=== PATIENT | male | born 2000 | race Two or more races ===

== ENCOUNTER 2025-03-05 06:16 | Emergency (ER) | payer MEDICAID, OTHER ==
[~2025-03-05] VITALS: Ht 182.9 cm; Wt 89.0 kg
[2025-03-05 07:28] VITALS: BP 147/89; PULSE 93; RESP 20; TEMP 97.6; O2SAT 97
[2025-03-05] MEDS: LIDOCAINE W/ EPINEPHRINE 1% 20ML VIAL ID ONE (07:46)
--- NOTE | 2025-03-05 08:01 | ED.PDOC ---
History of Present Illness HPI Comments 24-year-old male presents with a chief complaint of abscess to left hip x 1 week. Patient has a 5 x 5cm soft tissue swelling to his left hip. Patient reports that it is painful to touch. Patient states that he has been using heat compresses, but they have not been helping. Patient also reports taking Ibuprof en for the pain w/ improvement. Patient denies any fever at this time. Chief Complaint: Abscess Time Seen by MD: 07:24 Reviewed Notes: Nurses Notes, Medications, Allergies Allergies: Coded Allergies: NO KNOWN ALLERGIES (Unverified , 03/05/25) Home Meds Active Scripts Doxycycline Hyclate (DOXYCYCLINE HYCLATE) 100 Mg Tab, 1 TAB PO BID for 7 Days, #14 TAB 0 Refills Prov:NIKC HORVATH FRANK 03/05/25 Information Source: Patient Mode of Arrival: Ambulatory Severity: Moderate Timing: Days Duration: Since onset Prehospital treatment: None Past Medical History PAST MEDICAL HISTORY: Denies Surgical History: Denies all surgeries Family History Family History: Reviewed,noncontributory to illness Social History Smoker: Non-Smoker Alcohol: Denies ETOH Use Drugs: Denies Drug Use Lives In: Home Constitutional: denies: chills, diaphoresis, fatigue, fever, malaise, sweats, weakness, others EENTM: denies: blurred vision, double vision, ear bleeding, ear discharge, ear drainage, ear pain, ear ringing, eye pain, eye redness, hearing loss, mouth pain, mouth swelling, nasal discharge, nose bleeding, nose congestion, nose pain, photophobia, tearing, throat pain, throat swelling, voice changes, others Respiratory: denies: cough, hemoptysis, orthopnea, SOB at rest, shortness of breath, SOB with excertion, stridor, wheezing, others Cardiovascular: denies: chest pain, dizzy spells, diaphoresis, Dyspnea on exertion, edema, irregular heart beat, left arm pain, lightheadedness, palpitations, PND, syncope, others Gastrointestinal: denies: abdomen distended, abdominal pain, blood streaked bowels, constipated, diarrhea, dysphagia, difficulty swallowing, hematemesis, melena, nausea, poor appetite, poor fluid intake, rectal bleeding, rectal pain, vomiting, others Genitourinary: denies: burning, dysuria, flank pain, frequency, hematuria, incontinence, penile discharge, penile sore, pain, testicle pain, testicle swelling, urgency, others Neurological: denies: dizziness, fainting, headache, left sided numbness, left sided weakness, numbness, paresthesia, pre-existing deficit, right sided numbness, right sided weakness, seizure, speech problems, tingling, tremors, weakness, others Musculoskeletal: denies: back pain, gout, joint pain, joint swelling, muscle pain, muscle stiffness, neck pain, others Integumetry: reports: lumps; denies: bruises, change in color, change in hair/nails, dryness, laceration, lesions, rash, wounds, others Allergic/Immunocompromised: denies: Difficulty Healing, Frequent Infections, Hives, Itching, others Hematologic/Lymphatic: denies: anemia, blood clots, easy bleeding, easy bruising, swollen glands, others Endocrine: denies: excessive hunger, excessive sweating, excessive thirst, excessive urination, flushing, intolerance to cold, intolerance to heat, unexplained weight gain, unexplained weight loss, others Psychiatric: denies: anxiety, bipolar disorder, depression, hopeless, panic disorder, schizophrenia, sleepless, suicidal, others All Other Systems: Reviewed and Negative Physical Exam General Appearance: No Apparent Distress, Normal, Other (5 X 5 CM SOFT TISSUE SWELLING TO THE LEFT HIP, ERYTHEMATOUS, FLUCTUANT TO PALPATION, MILD TTP) HEENT: Normal ENT Inspection, Pharynx Normal, TMs Normal Neck: Full Range of Motion, Non-Tender, Normal, Normal Inspection Respiratory: Chest Non-Tender, Lungs Clear, No Accessory Muscle Use, No Respiratory Distress, Normal Breath Sounds Cardiovascular: No Edema, No JVD, No Murmur, No Gallop, Regular Rate/Rhythm Breast Exam: Deferred Gastrointestinal: No Organomegaly, Non Tender, No Pulsatile Mass, Normal Bowel Sounds, Soft Genitalia: Deferred Pelvic: Deferred Rectal: Deferred Extremities: No calf tenderness, Normal capillary refill, Normal inspection, Normal range of motion, Non-tender, No pedal edema Musculoskeletal : Apperance: Normal Neurologic: Alert, hedge trimmer II-XII nml as Tested, No Motor Deficits, Normal Affect, Normal Mood, No Sensory Deficits Cerebellar Function: Normal Reflexes: Normal Skin: Dry, Normal Color, Warm Lymphatic: No Adenopathy Was a procedure done? Was a procedure done?: Yes Sedation Sedation?: No Incision and Drainage Incision and Drainage: Abscess Location LEFT HIP Anesthetic: Lidocaine with Epi Preparation: Betadine, Saline Incision and Wound: Pus, Seroma, Irrigated, Packed Informed consent obtained: Yes Risks/benefits/alt described: Yes Differential Dx Considerations may include: abscess, cyst, cellulitis X-Ray, Labs, Meds, VS Vital Signs Date Time Temp Pulse Resp B/P (MAP) Pulse Ox O2 Delivery O2 Flow Rate FiO2 03/05/25 07:28 97.6 93 20 147/89 (108) 97 97.6 03/05/25 07:28 93 20 97 Room Air 03/05/25 06:26 97.6 93 20 147/89 (108) 97 97.6 Current Medications Medications (Trade) Dose Ordered Sig/Willow Route Start Time Stop Time Status Last Admin Lidocaine/ Epinephrine 5 ml ONCE ONCE ID 03/05/25 07:45 03/05/25 07:46 DC 03/05/25 07:46 X-Ray, Labs, Meds, VS Comment 24-year-old male presents with a chief complaint of abscess to left hip x 1 week. PATIENT ARRIVES ALERT AND ORIENTED, ABC'S INTACT, AFEBRILE, VITAL SIGNS STABLE, SATURATING WELL IN ROOM AIR This patient presents with signs and symptoms consistent with a cutaneous abscess. The abscess is localized without any evidence of deep soft tissue infection based on physical examination. The patient required incision and drainage. Verbal informed consent was obtained from the patient. I discussed the indications, benefits, alternatives and complications to performing an incision and drainage. The patient understands the risks include, but are not limited to scarring, underlying structure injury, bleeding, nerve injury, new infection, and resultant disability. The skin overlying the abscess was prepared with Betadine and alcohol. The skin surrounding the abscess was locally anesthetized using 1% Lidocaine with EPI An incision using a number 11 blade scalpel was made overlying the abscess. The incision was 1 cm long. Loculations were bluntly dissected using a hemostat. Careful exploration of the abscess cavity demonstrated no foreign body. The abscess cavity was packed with sterile packing. The wound was then dressed with sterile gauze. The wound was hemostatic at the conclusion of the procedure. The patient did not appear to suffer any complications as a result of the procedure. The patient was given DOXYCYCLINE 100 mg BID x 10 days and will f/u with PMD 3-5 days or return to the ER sooner if it worsens. The patient was counseled in regard to the diagnosis and management of the condition and verbalized understanding of this. The patient understands to return to the ER or seek imm ediate medical attention if the symptoms worsen. ADDITIONAL MDM REVIEW OF EXTERNAL, NON-ED RECORDS: EXTERNAL RECORDS REVIEWED. DISCUSSION WITH INDEPENDENT HISTORIAN (EMS, FAMILY) HISTORY OBTAINED FROM THE PATIENT/PARENTS (IF APPLICABLE) AT BEDSIDE CHRONIC CONDITIONS AFFECTING CARE: NONE SOCIAL DETERMINANTS OF HEALTH AFFECTING CARE: NONE CONSIDERATION OF ADMISSION (OBSERVATION OR ADMISSION): I CONSIDERED ESCALATION OF CARE TO ADMISSION FOR THIS PATIENT, HOWEVER GIVEN THE REASSURING WORKUP, THE PATIENT IS SAFE FOR OUTPATIENT MANAGEMENT. Time of 1ST Reevaluation: 07:24 Reevaluation 1ST: Unchanged Time of 2ND Reevaluation: 08:30 Reevaluation 2ND: Improved Patient Education/Counseling: Diagnosis, Treatment, Prognosis Family Education/Counseling: No Family Present SEPSIS Sepsis Screen Date sepsis recognized/suspect: Mar 05, 2025 Time Sepsis recognized/suspect: 625 Recent Procedure: No On Antibiotic Therapy: No Respiratory Rate >20: No Heart Rate >90: Yes Temp<36 C (96.8 F) or >38.3 C: No SBP <90 or MAP <65 mmHG: No New Acute Mental Status Change: No Is the patient on CPAP, BIPAP,: No Orders/Vitals/Labs Physician Orders 4X4 (03/05/25 07:36) Packing (03/05/25 07:36) Sterile Gloves (03/05/25 07:36) Sterile Dressing (03/05/25 07:36) I&D Tray (03/05/25 07:36) Vital Signs Date Time Temp Pulse Resp B/P (MAP) Pulse Ox O2 Delivery O2 Flow Rate FiO2 03/05/25 07:28 97.6 93 20 147/89 (108) 97 97.6 03/05/25 07:28 93 20 97 Room Air 03/05/25 06:26 97.6 93 20 147/89 (108) 97 97.6 Departure 1 Departure Time of Disposition: 08:31 Impression: Primary Impression: Abscess Disposition: 01 HOME / SELF CARE / HOMELESS Condition: Stable e-Prescriptions Doxycycline Hyclate (DOXYCYCLINE HYCLATE) 100 Mg Tab 1 TAB PO BID for 7 Days, #14 TAB 0 Refills Prov: NICK HORVATH NP 03/05/25 Critical Care Note Critical Care Time?: No Stability Stability form required: No Heart Score Heart Score: Heart Score Response (Comments) Value History N/A 0 EKG N/A 0 Age N/A 0 Risk Factors N/A 0 Troponin N/A 0 Total 0 I personally scribed for NICK HORVATH NP ([email or web address]) on 03/05/25 at 08:01. Electronically submitted by Truman Epps ([email or web address]). I personally scribed for NICK HORVATH NP ([email or web address]) on 03/05/25 at 08:28. Electronically submitted by Truman Epps ([email or web address]). NICK HORVATH NP Mar 05, 2025 08:01
[2025-03-05] MEDS ORDERED: DOXY-286 PO (08:31)
== END 2025-03-05 08:31 | disposition home or self-care (01) ==
LOC: ER 06:16
DX: L02.416 Cutaneous abscess of left lower limb (principal)
CPT/HCPCS: 10060

== ENCOUNTER 2025-03-07 06:11 | Emergency (ER) | payer MEDICAID ==
[~2025-03-07] VITALS: Ht 182.9 cm; Wt 88.6 kg
[~2025-03-07 06:11] MED LIST: DOXY-286 PO
[2025-03-07 06:27] VITALS: BP 129/65; PULSE 97; RESP 18; TEMP 99.5; O2SAT 97
--- NOTE | 2025-03-07 06:45 | ED.PDOC ---
History of Present Illness HPI Comments 24 year old male presents to the ED with a chief complaint of wound check onset today. Patient was seen in this ED on 03/05/25, had abscess from LT hip drained and packed. Patient came to ED for wound check, packed removed. Patient has no further complaints. Denies any PMHx as well as chest pain, shortness of breath, dizziness, nausea, vomiting, diarrhea, fevers, chills. No other symptoms or modifying factors present at this time. Chief Complaint: Wound Check Time Seen by MD: 06:25 Reviewed Notes: Medications, Allergies Allergies: Coded Allergies: NO KNOWN ALLERGIES (Unverified , 03/05/25) Home Meds Active Scripts Doxycycline Hyclate (DOXYCYCLINE HYCLATE) 100 Mg Tab, 1 TAB PO BID for 7 Days, #14 TAB 0 Refills Prov:YULIETNICK NP 03/05/25 Information Source: Patient Mode of Arrival: Ambulatory Severity: Moderate Timing: Hours Duration: Since onset Prehospital treatment: None Past Medical History PAST MEDICAL HISTORY: Denies Surgical History: Denies all surgeries Family History Family History: Reviewed,noncontributory to illness Social History Smoker: Non-Smoker Alcohol: Denies ETOH Use Drugs: Denies Drug Use Lives In: Home Constitutional: denies: chills, diaphoresis, fatigue, fever, malaise, sweats, weakness, others EENTM: denies: blurred vision, double vision, ear bleeding, ear discharge, ear drainage, ear pain, ear ringing, eye pain, eye redness, hearing loss, mouth pain, mouth swelling, nasal discharge, nose bleeding, nose congestion, nose pain, photophobia, tearing, throat pain, throat swelling, voice changes, others Respiratory: denies: cough, hemoptysis, orthopnea, SOB at rest, shortness of breath, SOB with excertion, stridor, wheezing, others Cardiovascular: denies: chest pain, dizzy spells, diaphoresis, Dyspnea on exertion, edema, irregular heart beat, left arm pain, lightheadedness, palpi tations, PND, syncope, others Gastrointestinal: denies: abdomen distended, abdominal pain, blood streaked bowels, constipated, diarrhea, dysphagia, difficulty swallowing, hematemesis, melena, nausea, poor appetite, poor fluid intake, rectal bleeding, rectal pain, vomiting, others Genitourinary: denies: burning, dysuria, flank pain, frequency, hematuria, incontinence, penile discharge, penile sore, pain, testicle pain, testicle swelling, urgency, others Neurological: denies: dizziness, fainting, headache, left sided numbness, left sided weakness, numbness, paresthesia, pre-existing deficit, right sided numbness, right sided weakness, seizure, speech problems, tingling, tremors, weakness, others Musculoskeletal: denies: back pain, gout, joint pain, joint swelling, muscle pain, muscle stiffness, neck pain, others Integumetry: reports: others (LT hip abscess); denies: bruises, change in color, change in hair/nails, dryness, laceration, lesions, lumps, rash, wounds Allergic/Immunocompromised: denies: Difficulty Healing, Frequent Infections, Hives, Itching, others Hematologic/Lymphatic: denies: anemia, blood clots, easy bleeding, easy bruising, swollen glands, others Endocrine: denies: excessive hunger, excessive sweating, excessive thirst, excessive urination, flushing, intolerance to cold, intolerance to heat, unexplained weight gain, unexplained weight loss, others Psychiatric: denies: anxiety, bipolar disorder, depression, hopeless, panic disorder, schizophrenia, sleepless, suicidal, others All Other Systems: Reviewed and Negative Physical Exam General Appearance: Normal HEENT: Normal ENT Inspection, Pharynx Normal, TMs Normal Neck: Full Range of Motion, Non-Tender, Normal, Normal Inspection Respiratory: Chest Non-Tender, Lungs Clear, No Accessory Muscle Use, No Respiratory Distress, Normal Breath Sounds Cardiovascular: No Edema, No JVD, No Murmur, No Gallop, Normal Peripheral Pulses, Regular Rate/Rhythm Breast Exam: Deferred Gastrointestinal: No Organomegaly, Non Tender, No Pulsatile Mass, Normal Bowel Sounds, Soft Genitalia: Deferred Pelvic: Deferred Rectal: Deferred Extremities: No calf tenderness, Normal capillary refill, Normal inspection, Normal range of motion, Non-tender, No pedal edema Musculoskeletal : Apperance: Normal Neurologic: Alert, last inserter II-XII nml as Tested, No Motor Deficits, Normal Affect, Normal Mood, No Sensory Deficits Cerebellar Function: Normal Reflexes: Normal Skin: Dry, Normal Color, Warm Lymphatic: No Adenopathy Was a procedure done? Was a procedure done?: No Differential Dx Considerations may include: Cellulitis, wound infection X-Ray, Labs, Meds, VS Vital Signs Date Time Temp Pulse Resp B/P (MAP) Pulse Ox O2 Delivery O2 Flow Rate FiO2 03/07/25 06:27 99.5 97 18 129/65 (86) 97 99.5 Time of 1ST Reevaluation: 06:55 Reevaluation 1ST: Unchanged Patient Education/Counseling: Diagnosis, Treatment, Prognosis Family Education/Counseling: No Family Present SEPSIS Sepsis Screen Date sepsis recognized/suspect: Mar 07, 2025 Time Sepsis recognized/suspect: 620 Recent Procedure: No On Antibiotic Therapy: No Respiratory Rate >20: No Heart Rate >90: No Temp<36 C (96.8 F) or >38.3 C: No SBP <90 or MAP <65 mmHG: No New Acute Mental Status Change: No Is the patient on CPAP, BIPAP,: No Vital Signs Date Time Temp Pulse Resp B/P (MAP) Pulse Ox O2 Delivery O2 Flow Rate FiO2 03/07/25 06:27 99.5 97 18 129/65 (86) 97 99.5 Departure 1 Departure Time of Disposition: 07:21 (Patient's abscess appears to be healing well. We will discharge patient home with outpatient follow up) Impression: Primary Impression: Wound check, abscess Disposition: 01 HOME / SELF CARE / HOMELESS Condition: Stable Additional Instructions: Your abscess appears to be healing well. Can wash the area twice a day with gentle soap and water. Discharged With: Self Critical Care Note Critical Care Time?: No Stability Stability form required: No I personally scribed for ALLEN WINTERS MD ([email or web address]) on 03/07/25 at 06:45. Electronically submitted by Kenna Taylor ([email or web address]). ALLEN WINTERS MD Mar 07, 2025 06:45
== END 2025-03-07 08:19 | disposition home or self-care (01) ==
LOC: ER 06:11
DX: L02.416 Cutaneous abscess of left lower limb (principal); Z79.899 Other long term (current) drug therapy; Z48.01 Encounter for change or removal of surgical wound dressing